=== PATIENT | male | born 1975 | race Caucasian/White ===

== ENCOUNTER 2018-05-16 09:05 | Emergency (ER) | payer BC ==
--- NOTE | 2018-05-16 09:32 | EDM.PDOC ---
ED HPI GENERAL MEDICAL PROBLEM - General Chief Complaint: Back Pain or Injury Stated Complaint: [id number],PAIN ON THE RIGHT SIDE/BURNING [id number] Time Seen by Provider: 05/16/18 09:24 Source of Information: Reports: Patient History Limitations: Reports: No Limitations - History of Present Illness INITIAL COMMENTS - FREE TEXT/NARRATIVE: Patient comes emergency department today with complaints of flulike symptoms and right-sided flank pain. 2 days ago he developed a cough congestion and fever. Kind of generalized body aches. His cough is nonproductive. Over the past 12 hours he has developed a superficial burning searing constant lower right flank pain. This is very similar pain that he had shingles in the past. He has no rash. No hematuria dysuria or urinary frequency. No history of kidney stones. No recent falls or trauma to the area of complaint. No chest pain or difficulty breathing. No nausea no vomiting. No diarrhea. Right Flank Pain Score (Numeric/FACES): 2 - Related Data Allergies Allergy/AdvReac Type Severity Reaction Status Date / Time Penicillins Allergy Hives Verified 05/16/18 09:34 Home Meds: Home Meds . [No Known Home Meds] 05/16/18 [History] ED ROS GENERAL - Review of Systems Review Of Systems: ROS reveals no pertinent complaints other than HPI. ED EXAM,LOWER BACK PAIN/INJURY - Physical Exam Exam: See Below Exam Limited By: No Limitations General Appearance: Alert, WD/WN, No Apparent Distress Eye Exam: Bilateral Eye: Normal Inspection Ears: Normal External Exam, Normal TMs Nose: Normal Inspection, Normal Mucosa Throat/Mouth: Normal Inspection, Normal Lips, Normal Teeth, Normal Oropharynx, Normal Voice Head: Atraumatic, Normocephalic Neck: Normal Inspection, Supple, Non-Tender, Full Range of Motion. No: Lymphadenopathy (L), Lymphadenopathy (R) Respiratory/Chest: No Respiratory Distress, Lungs Clear, Normal Breath Sounds, No Accessory Muscle Use, Chest Non-Tender Cardiovascular: Normal Peripheral Pulses, Regular Rate, Rhythm GI/Abdominal: Normal Bowel Sounds, Soft, Non-Tender Back Exam: Other (He does have some hypersensitivity to touch on the right lower flank starting from the midline and expanding like a fan around the right flank. There is no lesions or sores bruising swelling ecchymosis. No CVA tenderness.) Extremities: Normal Inspection, Normal Range of Motion, Non-Tender, Normal Capillary Refill Neurological: Alert, Normal Mood/Affect, Normal Plantar Flexion, Oriented x 3 Psychiatric: Normal Affect, Normal Mood Skin Exam: Warm, Dry, Intact, Normal Color. No: Rash Course - Vital Signs Last Recorded V/S: Last Vital Signs Temp 36.5 C 05/16/18 09:10 Pulse 79 05/16/18 09:10 Resp 16 05/16/18 09:10 BP 133/94 H 05/16/18 09:10 Pulse Ox 97 05/16/18 09:10 - Orders/Labs/Meds Orders: Active Orders 24 hr Category Date Time Status Chest 2V [CR] Urgent Exams 05/16/18 10:24 Taken Labs: Laboratory Tests 05/16/18 Range/Units 09:23 Urine Color Dark yellow (YELLOW) Urine Appearance Slightly cloudy (CLEAR) Urine pH 5.5 (5.0-9.0) Ur Specific [place] >= 1.030 (1.005-1.030) Urine Protein 30 H (NEGATIVE) Urine Glucose (UA) Negative (NEGATIVE) Urine Ketones Trace H (NEGATIVE) Urine Occult Blood Negative (NEGATIVE) Urine Nitrite Negative (NEGATIVE) Urine Bilirubin Small H (NEGATIVE) Urine Urobilinogen 0.2 (0.2-1.0) mg/dL Ur Leukocyte Esterase Negative (NEGATIVE) Urine RBC 0-5 /HPF Urine WBC 0-5 (0-5/HPF) /HPF Ur Epithelial Cells Rare /HPF Amorphous Sediment Rare (0/HPF) /HPF Urine Bacteria Rare (0-FEW/HPF) /HPF Urine Mucus Moderate H /LPF Microbiology 05/16/18 09:38 Nasopharyngeal Swab Influenza Type A Antigen Screen - Final NEGATIVE INFLUENZA A VIRUS AG 05/16/18 09:38 Nasopharyngeal Swab Influenza Type B Antigen Screen - Final NEGATIVE INFLUENZA B VIRUS AG - Radiology Interpretation Free Text/Narrative:: Chest x-ray per radiology was negative for pneumonia. - Re-Assessments/Exams Free Text/Narrative Re-Assessment/Exam: 05/16/18 11:38 His urinalysis is unremarkable his chest x-ray is negative as well as his influenza and this was relayed to the patient. I do agree with him that this is most likely the early sequelae of herpes zoster. We will start him on valacyclovir and pain management. Would not be surprising to me if he developed a painful scaly rash on the right side of his flank in the next couple of days. Hopefully the valacyclovir will help prevent long-term sequelae. I will send him with albuterol inhaler for his cough. He is comfortable with this plan and his questions are answered. Departure - Departure Time of Disposition: 10:21 Disposition: Home, Self-Care 01 Clinical Impression: Cough, Flank pain - Discharge Information Instructions: Cough, Adult, [id number], Shingles, [id number] Forms: ED Department Discharge Additional Instructions: Increase fluids over the next few days. Albuterol MDI as needed for cough. RX given to the patient. 2 puffs every 4-6 hrs as needed for cough. Tylenol and or Ibuprofen as needed for pain If pain not controlled with above. [place] 1/2-1 tab every 6 hrs as needed for pain. Caution sedation. RX to the patient. #15. Valacyclovir 1 gram three times a day for the next 7 days. RX given to the patient. Return to the ED if new or worsening symptoms. - My Orders Last 24 Hours: My Active Orders 05/16/18 10:24 Chest 2V [CR] Urgent - Assessment/Plan Last 24 Hours: My Active Orders 05/16/18 10:24 Chest 2V [CR] Urgent Assessment:: Cough-viral Right flank pain, most likely early sequelae of herpes zoster. Plan: Increase fluids over the next few days. Albuterol MDI as needed for cough. RX given to the patient. 2 puffs every 4-6 hrs as needed for cough. Tylenol and or Ibuprofen as needed for pain If pain not controlled with above. [place] 1/2-1 tab every 6 hrs as needed for pain. Caution sedation. RX to the patient. #15. Valacyclovir 1 gram three times a day for the next 7 days. RX given to the patient. Return to the ED if new or worsening symptoms.
== END 2018-05-16 10:38 | disposition home or self-care (01) ==
LOC: DL.ED 09:05
DX: B34.9 Viral infection, unspecified (principal); Z88.0 Allergy status to penicillin
CPT/HCPCS: 71046; 81001; 87804; 99283-25